=== PATIENT | female | born 1985 | race Caucasian/White ===

== ENCOUNTER 2016-11-18 22:16 | Emergency (ER) | payer OTHER ==
[2016-11-18 22:31] VITALS: BP 143/71; PULSE 88; TEMP 98; BMI 24.3
--- NOTE | 2016-11-19 00:38 | PDOC ---
History of Present Illness - General Chief Complaint: Rectal Bleed Stated Complaint: BLOOD IN STOOL Time Seen by Provider: 11/18/16 23:02 History Source: Patient Exam Limitations: No Limitations - History of Present Illness Timing/Duration: 1/2 hour Associated Symptoms: reports: denies symptoms Past History - Past Medical History Allergies/Adverse Reactions: Allergies Allergy/AdvReac Type Severity Reaction Status Date / Time No Known Allergies Allergy Verified 11/18/16 22:26 Home Medications: Ambulatory Orders NK [No Known Home Medication] 11/18/16 - Psycho/Social/Smoking Cessation Hx Suicidal Ideation: No Smoking History: Current every day smoker Information on smoking cessation initiated: No Review of Systems - Review of Systems Able to Perform ROS?: Yes Comments:: 11/19/16 00:35 CONSTITUTIONAL: Absent: fever, chills, diaphoresis, generalized weakness, malaise, loss of appetite HEENT: Absent: rhinorrhea, nasal congestion, throat pain, throat swelling, difficulty swallowing, mouth swelling, ear pain, eye pain, visual Changes CARDIOVASCULAR: Absent: chest pain, loss of consciousness, palpitations, irregular heart rate, peripheral edema RESPIRATORY: Absent: cough, shortness of breath, dyspnea with exertion, orthopnea, wheezing, stridor, hemoptysis GASTROINTESTINAL: BRBPR x1 Absent: abdominal pain, abdominal distension, nausea, vomiting, diarrhea, constipation, melena, hematochezia GENITOURINARY: Absent: dysuria, frequency, urgency, hesitancy, hematuria, flank pain, genital pain MUSCULOSKELETAL: Absent: myalgia, arthralgia, joint swelling SKIN: Absent: rash, itching, pallor HEMATOLOGIC/IMMUNOLOGIC: Absent: easy bleeding, easy bruising, lymphadenopathy, frequent infections ENDOCRINE: Absent: unexplained weight gain, unexplained weight loss, heat intolerance, cold intolerance NEUROLOGIC: Absent: headache, focal weakness or paresthesias, dizziness, unsteady gait, seizure, mental status changes, bladder or bowel incontinence PSYCHIATRIC: Absent: anxiety, depression, suicidal or homicidal ideation, hallucinations. Is the patient limited Italian proficient: No *Physical Exam - Vital Signs Last Vital Signs Temp Pulse Resp BP Pulse Ox 98 F 88 18 143/71 100 11/18/16 22:27 11/18/16 22:27 11/18/16 22:27 11/18/16 22:27 11/18/16 22:27 *DC/Admit/Observation/Transfer Diagnosis at time of Disposition: Acute hemorrhoid - Discharge Dispostion Disposition: HOME Condition at time of disposition: Improved - Patient Instructions Printed Discharge Instructions: DI for Hemorrhoids Additional Instructions: Follow up with the colo-rectal surgeon Increase fluids Return to the Er for severe/persistent or worsening sypmtoms - Post Discharge Activity Work/School Note: Back to Work
== END 2016-11-19 00:46 | disposition home or self-care (01) ==
LOC: JER 22:16
DX: K64.8 Other hemorrhoids (principal)
CPT/HCPCS: 99281-25